=== PATIENT | female | born 1985 | race Caucasian/White ===

== ENCOUNTER → 2016-06-28 | Outpatient (CLI) | payer BC, OTHER ==
[~2016-06-28] MED LIST: DOCU-94 PO; MTR600X PO; OXYC-57 PO; PRENTAB26 PO
== END | disposition home or self-care (01) ==
LOC: C.LABSPEC 10:42
PROVIDERS: ATTEND Obstetrics & Gynecology
DX: O09.03 Supervision of pregnancy with history of infertility, third trimester (principal)

== ENCOUNTER 2016-07-08 11:40 | Outpatient (CLI) | payer BC ==
[~2016-07-08] VITALS: Ht 162.6 cm; Wt 83.5 kg
[2016-07-08] MEDS ORDERED: TERBUTALINE SULFATE 1 MG/ML VIAL SQ ONE (12:30)
[2016-07-08 14:20] VITALS: Ht 162.6 cm; Wt 83.5 kg
--- NOTE | 2016-07-18 06:21 | EDITING REQUIRED CODING QUERY ---
EXTERNAL VERSION CLARIFICATION External version was charged on this account. No documentation in EMR regarding this procedure could be located. Please clarify below regarding this procedure: ( ) External version was performed BRIEF DESCRIPTION: ( ) External version was not performed ( x ) Other, please clarify: ECV attempted but failed. Please see documentation in QS Thank you for your assistance, Telma Stokes - Assistant Community Director
== END 2016-07-08 14:43 | disposition home or self-care (01) ==
LOC: C.LD 11:40 → C.OPB 11:40
PROVIDERS: ATTEND Obstetrics & Gynecology
DX: O32.1XX0 Maternal care for breech presentation, not applicable or unspecified (principal); Z3A.37 37 weeks gestation of pregnancy

== ENCOUNTER 2016-07-21 06:19 | Inpatient (IN) | payer BC ==
[~2016-07-21] VITALS: Ht 165.1 cm; Wt 82.3 kg
[2016-07-21] VITALS (10 sets, daily range): BP systolic 115–130; BP diastolic 67–77; PULSE 64–69; TEMP 36.5–36.8; O2SAT 98–100; Ht 165.1 cm; Wt 82.3 kg
[2016-07-21] MEDS ORDERED: CEFAZOLIN IV 2,000 MG in DEXTROSE 5% 50ML 50 ML IV STA (07:03)
[2016-07-21] MEDS ORDERED: CITRIC ACID/SODIUM CITRATE 15 ML UDC PO STA (07:04)
[2016-07-21 07:53] LABS: BASO % 0.2 %; BASO ABS # 0.02 K/uL (0-0.2); COMPLETE YES; EOS % 0.8 %; HEMATOCRIT 37.1 % (37-47); IG% 0.7 %; LYMPH ABS # 2.52 K/uL (1.2-3.4); MEAN CELL VOLUME 88.5 fL (80-100); MEAN CORPUSCULAR HEMOGLOBIN 30.5 pg (25-34); MEAN CORPUSCULAR HGB CONC 34.5 g/dl (32-36); MEAN PLATELET VOLUME 11.4 fL (7.4-10.4); MONO % 7.8 %; NEUT % 66.5 %; PLATELET COUNT 151 K/uL (130-400); RED BLOOD COUNT 4.19 M/uL (4.2-5.4); WHITE BLOOD COUNT 10.52 K/uL (4.8-10.8)
[2016-07-21] MEDS ORDERED: PRENTAB26 PO (08:09)
[2016-07-21] MEDS ORDERED: DOCU-94 PO (08:09)
[2016-07-21] MEDS ORDERED: MoRPHine SULFATE PF 1 MG/ML 10 ML AMP/VIAL ONE (09:58)
[2016-07-21] MEDS ORDERED: FENTANYL CITRATE INJ 50 MCG/1 ML 2 ML VIAL ONE (09:58)
[2016-07-21] MEDS ORDERED: PHENYLEPHRINE HCL INJ 10 MG/ML VIAL ONE (10:00)
[2016-07-21] MEDS ORDERED: OXYTOCIN INJ 10 UNITS/ML VIAL ONE ×2 (10:06→11:01)
[2016-07-21] MEDS ORDERED: MIDAZOLAM HCL 1 MG/ML 2ML VIAL ONE (11:09)
[2016-07-21] MEDS ORDERED: NALOXONE HCL INJ 1 MG in SODIUM CHLORIDE 0.9% 1000ML 1,000 ML IV PRN ×4 (11:44)
[2016-07-21] MEDS ORDERED: SODIUM CHLORIDE 0.9% 1000ML 1,000 ML IV PRN (11:44)
[2016-07-21] MEDS ORDERED: LACTATED RINGER'S 1000ML 500 ML IV PRN (11:44)
[2016-07-21] MEDS ORDERED: NALOXONE HCL INJ 0.08 MG in SYRINGE 1.8 ML IV PRN (11:44)
[2016-07-21] MEDS ORDERED: NO NARCOTICS OR SEDATIVES SCH (11:45)
[2016-07-21] MEDS ORDERED: MoRPHine SULFATE PF 1 MG/ML 10 ML AMP/VIAL EPI PRN (11:45)
[2016-07-21] MEDS ORDERED: PROMETHAZINE HCL INJ 25 MG in SODIUM CHLORIDE 0.9% 50ML 50 ML IV PRN (11:45)
[2016-07-21] MEDS ORDERED: NALOXONE HCL 0.4 MG/1 ML VIAL/CARP IV PRN (11:45)
[2016-07-21] MEDS ORDERED: ONDANSETRON INJ 2 MG/ML 2 ML VIAL IV PRN (11:45)
[2016-07-21] MEDS ORDERED: DiphenhydrAMINE HCL 50 MG/ML VIAL IV PRN (11:45)
[2016-07-21] MEDS ORDERED: EpHEDrine SULFATE INJ 50 MG/ML AMP IV PRN (11:45)
[2016-07-21] MEDS ORDERED: NALBUPHINE HCL INJ 10 MG/ML AMP IV PRN (11:45)
[2016-07-21] MEDS ORDERED: OXYTOCIN INJ 20 UNITS in LACTATED RINGER'S 1000ML 1,000 ML IV SCH (11:47)
--- NOTE | 2016-07-21 11:54 | [facility] Post Operative Brief Note ---
Immediate Operative Summary Operative Date Jul 21, 2016. Pre-Operative Diagnosis Primary caesarean section for breech presentation, patient arrived with spontaneous rupture of membranes Post-Operative Diagnosis Same as pre-op Procedure(s) Performed Low uterine transverse incision, primary caesarean section, delivery of live male child at [address] Ajay Banks Tracer Lathe Set Up Operator Surgeon(s) Dr. Janice Casillas Estimated Blood Loss 500 ml Findings Delivered a viable infant male, APGARS 7,9. Weight 8lbs 8 oz. Normal uerus, fallopian tubes, and ovaries bilaterally. Specimens A: Placenta: Hold B: Cord blood C: Cord blood for public cord blood banking donation D: Cord blood gases (arterial and venous) Drains Grande to straight drainage, clear urine at end of case Complication(s) None
--- NOTE | 2016-07-21 11:57 | Anesthesiology Progress Note ---
Anesthesia Post Op Note Date & Time Jul 21, 2016 at 11:56 Notes Mental Status: alert / awake / arousable, participated in evaluation Pt Amnestic to Procedure: No Nausea / Vomiting: adequately controlled Pain: adequately controlled Airway Patency, RR, SpO2: stable & adequate BP & HR: stable & adequate Hydration State: stable & adequate Neuraxial Anesthesia: was administered, sensory block is resolving Anesthetic Complications: no major complications apparent
[2016-07-21] MEDS ORDERED: SUPERCREAM 0.870 % 15GM JAR EXT PRN (12:00)
[2016-07-21] MEDS ORDERED: DIPHTHERIA/TETANUS/PERTUSSIS 0.5 ML SYR/VIAL IM. ONE (12:00)
[2016-07-21] MEDS ORDERED: BENZOCAINE 20% AER SPR 82.5 GM CAN EXT PRN (12:00)
[2016-07-21] MEDS ORDERED: SENNA 8.6 MG TAB PO PRN (12:00)
[2016-07-21] MEDS ORDERED: LANOLIN OINT EXT PRN ×2 (12:00)
[2016-07-21] MEDS ORDERED: HYDROCORTISONE ACETATE 25 MG SUPP PR PRN (12:00)
[2016-07-21] MEDS: KETOROLAC TROMETHAMINE 30 MG/ML VIAL IV. PRN ×2 (12:51→18:46)
--- NOTE | 2016-07-21 13:12 | OPERATIVE REPORT ---
DATE OF OPERATION: 07/21/2016 PREOPERATIVE DIAGNOSES: 1. Term intrauterine . 2. Breech presentation. 3. Spontaneous rupture of membranes. POSTOPERATIVE DIAGNOSIS: Same. PROCEDURE PERFORMED: Primary low transverse section. ANESTHESIA: Spinal anesthesia. SURGEON: Juliane Banks DO. SPANISH SPEAKING BABYSITTER: Dr. Casillas. ESTIMATED BLOOD LOSS: 500 mL. FINDINGS: Viable male , Apgars 7 and 9, weight 8 pounds 8 ounces. Normal uterus, fallopian tubes and ovaries bilaterally. SPECIMENS: Placenta, cord blood, cord gases and cord blood for pelvic cord donation banking. DRAINS: Grande catheter to gravity with clear urine at the conclusion of case. COMPLICATIONS: None. DISPOSITION: Stable and good. INDICATIONS FOR PROCEDURE: The patient is a 31-year-old G1, P0 at 39 weeks 2 days who presented with both breach presentation and spontaneous rupture of membranes. Informed consent was obtained and the patient was taken to the operating room for section. DESCRIPTION OF PROCEDURE: The patient was taken to the operating room where spinal anesthesia was introduced. She was placed in the supine position with a leftward tilt. She was prepared and draped in the usual sterile fashion. A timeout was called and confirmed by all participants in the room. She was infused 2 grams of Ancef prior to beginning the procedure. A Pfannenstiel skin incision was made with a scalpel and carried through to the underlying layer of fascia with blunt and sharp dissection. The fascia was nicked at midline and bluntly dissected to extend the incision. The superior aspect of the fascial incision was grasped with Deann clamps x2 elevated off the underlying rectus abdominis muscles both sharply and bluntly. The inferior aspect of the incision was dissected in a similar fashion. The muscles were at midline and the peritoneum was entered bluntly digitally. This incision was extended bluntly. The bladder blade was placed. The bladder flap was created using Metzenbaum scissors and [place] forceps. The bladder blade was replaced. The uterine incision was made with a second scalpel and extended cephalad caudad manually. The infant was delivered from a complete breech presentation. The buttocks was delivered first followed by sweeping of bilateral legs, the left arm was then swept and the right arm was swept and a blue towel was placed around the infant, the head was then atraumatically delivered. The cord was doubly clamped and cut. Baby was handed off to the awaiting pediatrics team. A cord segment was retained for cord gases, cord blood was obtained for public cord donation banking and cord blood was obtained for laboratory testing. The placenta was removed manually, the uterus was exteriorized and the bladder blade was placed. The hysterotomy incision was reapproximated using 0 Vicryl in a running locked stitch. A second layer of the same suture was used to imbricate the hysterotomy incision. The pelvis was irrigated. The posterior uterus was evaluated and normal. The fallopian tubes and ovaries were evaluated, appeared to be normal as well. The uterus was returned to the abdomen and gutters were cleared of all clots and debris. The hysterotomy incision was inspected again and a [id number] stitch was placed in the right apex of the hysterotomy to obtain better hemostasis. Excellent hemostasis was achieved. The fascial incision was reapproximated using 0 Vicryl in a running stitch. The subcutaneous tissue was irrigated and the subcutaneous tissue was reapproximated using 2-0 plain gut suture, the skin was reapproximated using 4-0 Vicryl in a subcuticular fashion. Steri-Strips were applied. The patient was taken back to her labor and delivery room in stable and good condition. She and baby tolerated the procedure well. I attest to the content of the Intraoperative Record and any orders documented therein. Any exceptions are noted below. HAIR
[2016-07-21] MEDS ORDERED: HYDROmorphone INJ 2 MG/ML SYR/VIAL IV PRN (17:15)
[2016-07-21] MEDS: DOCUSATE SODIUM 100 MG CAP PO SCH (20:32)
[2016-07-22] VITALS (12 sets, daily range): BP systolic 118–139; BP diastolic 67–85; PULSE 67–73; TEMP 36.3–37.4; O2SAT 96–99
[2016-07-22] MEDS: KETOROLAC TROMETHAMINE 30 MG/ML VIAL IV. PRN (03:15)
[2016-07-22] MEDS ORDERED: DC INTRASPINAL MORPHINE SCH (05:30)
[2016-07-22] MEDS ORDERED: OXYCODONE/ACETAMINOPHEN 5-325 TAB PO PRN (05:31)
[2016-07-22] MEDS ORDERED: DiphenhydrAMINE HCL 50 MG/ML VIAL IV PRN (05:31)
[2016-07-22] MEDS ORDERED: KETOROLAC TROMETHAMINE 30 MG/ML VIAL IV. PRN (05:31)
[2016-07-22] MEDS ORDERED: ONDANSETRON INJ 2 MG/ML 2 ML VIAL IV PRN (05:31)
[2016-07-22 06:19] LABS: BASO % 0.2 %; BASO ABS # 0.02 K/uL (0-0.2); COMPLETE YES; HEMATOCRIT 30.6 % (37-47); IG% 0.5 %; LYMPH % 16.2 %; LYMPH ABS # 2.13 K/uL (1.2-3.4); MEAN CELL VOLUME 88.2 fL (80-100); MEAN CORPUSCULAR HEMOGLOBIN 30.3 pg (25-34); MEAN CORPUSCULAR HGB CONC 34.3 g/dl (32-36); MEAN PLATELET VOLUME 11.4 fL (7.4-10.4); MONO % 6.5 %; NEUT % 75.6 %; PLATELET COUNT 140 K/uL (130-400); RED BLOOD COUNT 3.47 M/uL (4.2-5.4); WHITE BLOOD COUNT 13.15 K/uL (4.8-10.8)
--- NOTE | 2016-07-22 07:04 | Progress Note ---
Subjective Jul 22, 2016. Subjective conversation w/ patient, conversation w/ family Ambulation: limited ambulation Voiding: angulo catheter in place (Angulo just removed, no urination yet this morning) Passing Gas: Yes Diet Tolerance: Regular Diet Lochia: Small Feeding Type: Breast Feeding Pain: Well controlled with Toradol Review of Systems Constitutional: No chills, No fever Respiratory: No cough, No shortness of breath Cardiac: No chest pain Breast: No breast pain Abdomen: No nausea, No pain, No vomiting Female : No dysuria Objective Vital Signs Date Time Temp Pulse Resp B/P Pulse Ox O2 Delivery O2 Flow Rate FiO2 07/22/16 05:15 18 98 07/22/16 04:23 18 99 07/22/16 04:22 37.4 73 18 118/73 Room Air 07/22/16 03:30 16 98 07/22/16 02:39 16 98 07/22/16 01:58 16 96 07/22/16 01:15 18 98 07/22/16 00:30 36.7 16 118/71 99 Room Air 07/22/16 00:30 99 Room Air 07/22/16 00:00 16 99 07/21/16 23:18 18 98 07/21/16 22:30 20 99 07/21/16 21:30 20 99 07/21/16 20:30 20 99 07/21/16 19:30 99 Room Air 07/21/16 19:30 36.6 69 20 130/77 Room Air 07/21/16 18:30 18 99 07/21/16 17:30 20 98 07/21/16 16:30 36.5 65 18 123/77 100 Room Air 07/21/16 16:30 100 Room Air 07/21/16 16:30 20 100 07/21/16 15:45 36.8 64 20 115/67 100 Room Air 07/21/16 15:35 20 100 Physical Exam General Appearance: WELL-APPEARING, WD/WN, NO APPARENT DISTRESS Respiratory/Chest: lungs clear, normal breath sounds Cardiovascular: regular rate, rhythm, no gallop, no murmur Abdomen: non tender, soft Fundus: Firm, Relation to Umbilicus (At umbilicus) Incision Description: Clean, Dry & Intact Extremities: no calf tenderness Laboratory Results Last 24 Hours Test 07/21/16 07:15 07/22/16 05:45 White Blood Count 10.52 K/uL 13.15 K/uL Red Blood Count 4.19 M/uL 3.47 M/uL Hemoglobin 12.8 g/dL 10.5 g/dL Hematocrit 37.1 % 30.6 % Mean Corpuscular Volume 88.5 fL 88.2 fL Mean Corpuscular Hemoglobin 30.5 pg 30.3 pg Mean Corpuscular Hemoglobin Concent 34.5 g/dl 34.3 g/dl Platelet Count 151 K/uL 140 K/uL Mean Platelet Volume 11.4 fL 11.4 fL Neutrophils (%) (Auto) 66.5 % 75.6 % Lymphocytes (%) (Auto) 24.0 % 16.2 % Monocytes (%) (Auto) 7.8 % 6.5 % Eosinophils (%) (Auto) 0.8 % 1.0 % Basophils (%) (Auto) 0.2 % 0.2 % Neutrophils # (Auto) 7.01 K/uL 9.94 K/uL Lymphocytes # (Auto) 2.52 K/uL 2.13 K/uL Monocytes # (Auto) 0.82 K/uL 0.86 K/uL Eosinophils # (Auto) 0.08 K/uL 0.13 K/uL Basophils # (Auto) 0.02 K/uL 0.02 K/uL RDW Standard Deviation 43.2 fL 42.9 fL RDW Coefficient of Variation 13.3 % 13.4 % Immature Granulocyte % (Auto) 0.7 % 0.5 % Immature Granulocyte # (Auto) 0.07 K/uL 0.07 K/uL Medications Current Inpatient Medications Medications (Trade) Dose Ordered Sig/Tiffanie Route Start Time Stop Time Status Last Admin Dose Admin Oxytocin/Lactated Ringer's (Pitocin Inj/Lr 1000ml) 1,002 ml @ 125 mls/hr Q8H1M IV 07/21/16 11:47 08/20/16 11:46 07/21/16 14:00 125 MLS/HR Ketorolac Tromethamine (Toradol Inj) 30 mg Q6H PRN IV. 07/22/16 05:31 07/26/16 05:30 Oxycodone/ Acetaminophen (Percocet 5-325mg Tab) 1 tab Q4H PRN PO 07/22/16 05:31 08/05/16 05:30 Oxycodone/ Acetaminophen (Percocet 5-325mg Tab) 2 tab Q4H PRN PO 07/22/16 05:31 08/05/16 05:30 Ibuprofen (Motrin Tab) 600 mg Q4H PRN PO 07/21/16 12:00 08/20/16 11:59 Ondansetron HCl (Zofran Inj) 4 mg Q4H PRN IV 07/22/16 05:31 08/21/16 05:30 Prenat Multivit/ [place]/Iron/Folic Ac ( Vitamin Tab) 1 tab DAILY PO 07/22/16 08:00 08/21/16 07:59 Bisacodyl (Dulcolax Tab) 5 mg HS ONCE PO 07/22/16 22:00 07/22/16 22:01 Bisacodyl (Dulcolax Supp) 10 mg TODAY@0700 PRN HI 07/23/16 07:00 07/23/16 23:59 Docusate Sodium (coLACE CAP) 100 mg BID PO 07/21/16 20:00 08/20/16 19:59 07/21/16 20:32 100 MG Cocaine HCl (Supercream 0.870% Cr) BID PRN EXT 07/21/16 12:00 08/04/16 11:59 Lanolin (Lanolin Oint) PRN PRN EXT 07/21/16 12:00 08/20/16 11:59 Hydrocortisone Acetate (Anusol Hc Supp) 25 mg BID PRN HI 07/21/16 12:00 08/20/16 11:59 Benzocaine (Dermoplast Aero Spr) 1 appln PRN PRN EXT 07/21/16 12:00 08/20/16 11:59 Diphenhydramine HCl (Benadryl Cap) 25 mg QID PRN PO 07/22/16 05:31 08/21/16 05:30 Diphenhydramine HCl (Benadryl Inj) 25 mg QID PRN IV 07/22/16 05:31 08/21/16 05:30 Senna (Senokot Tab) 17.2 mg HS PRN PO 07/21/16 12:00 08/20/16 11:59 Hydromorphone HCl (Dilaudid Inj) 0.25 mg Q5M PRN IV 07/21/16 17:15 08/04/16 17:14 Assessment and Plan Post-Op Day#: 1 Continue Routine Care: - Vital Signs reviewed and WNL (temp max 37.4) - Blood Type: O+, GBS Negative, Rubella Immune - Patient doing well clinically - Encourage Ambulation today - Tolerating PO Diet - Pain well controlled - Angulo removed this morning, observe for urination today Resident Physician Supervision Note: I was present with Dr. Casillas during the history and exam. I discussed the case with the resident and agree with the findings and plan as documented in the note. Any exceptions or clarifications are listed here: POD#1, doing well. Routine postop care. Documented By: Juliane Banks
[2016-07-22] MEDS: IBUPROFEN 600 MG TAB PO PRN ×5 (07:27→23:42)
[2016-07-22] MEDS: OXYCODONE/ACETAMINOPHEN 5-325 TAB PO PRN ×5 (07:28→23:42)
[2016-07-22] MEDS: DOCUSATE SODIUM 100 MG CAP PO SCH ×2 (07:33→19:35)
[2016-07-22] MEDS: PRENATAL VITAMIN TAB PO SCH (07:33)
[2016-07-22] MEDS ORDERED: BISACODYL 5 MG TABEC PO ONE (22:00)
[2016-07-23 00:30] VITALS: BP 115/62; PULSE 76; TEMP 36.6; O2SAT 98
[2016-07-23] MEDS: OXYCODONE/ACETAMINOPHEN 5-325 TAB PO PRN ×4 (04:34→18:27)
[2016-07-23] MEDS: IBUPROFEN 600 MG TAB PO PRN ×5 (04:34→23:43)
[2016-07-23 07:00] LABS: HEMATOCRIT 29.4 % (37-47)
[2016-07-23] MEDS ORDERED: BISACODYL 10 MG SUPP PR PRN (07:00)
--- NOTE | 2016-07-23 07:05 | Progress Note ---
Subjective Jul 23, 2016. Subjective conversation w/ patient, physical exam Ambulation: ambulating normally Voiding: no voiding problems Passing Gas: Yes Diet Tolerance: Regular Diet Lochia: Small Feeding Type: Breast Feeding Pain: No pain reported this morning Review of Systems Constitutional: No chills, No fever Respiratory: No cough, No shortness of breath Cardiac: No chest pain Breast: No breast pain Abdomen: No nausea, No pain, No vomiting Female : No dysuria Objective Vital Signs Date Time Temp Pulse Resp B/P Pulse Ox O2 Delivery O2 Flow Rate FiO2 07/23/16 00:30 36.6 76 16 115/62 98 Room Air 07/23/16 00:30 98 Room Air 07/22/16 15:25 36.3 69 18 139/67 97 Room Air 07/22/16 15:25 97 Room Air 07/22/16 08:00 36.6 67 18 128/85 99 Room Air 07/22/16 07:40 Room Air Physical Exam General Appearance: WELL-APPEARING, WD/WN, NO APPARENT DISTRESS Respiratory/Chest: lungs clear, normal breath sounds Cardiovascular: regular rate, rhythm, no gallop, no murmur Abdomen: non tender, soft Fundus: Firm, Relation to Umbilicus (1cm below umbilicus) Incision Description: Clean, Dry & Intact Extremities: no calf tenderness Laboratory Results Last 24 Hours Test 07/23/16 06:20 Hemoglobin 9.9 g/dL Hematocrit 29.4 % Medications Current Inpatient Medications Medications (Trade) Dose Ordered Sig/Tiffanie Route Start Time Stop Time Status Last Admin Dose Admin Oxytocin/Lactated Ringer's (Pitocin Inj/Lr 1000ml) 1,002 ml @ 125 mls/hr Q8H1M IV 07/21/16 11:47 08/20/16 11:46 07/21/16 14:00 125 MLS/HR Ketorolac Tromethamine (Toradol Inj) 30 mg Q6H PRN IV. 07/22/16 05:31 07/26/16 05:30 Oxycodone/ Acetaminophen (Percocet 5-325mg Tab) 1 tab Q4H PRN PO 07/22/16 05:31 08/05/16 05:30 07/23/16 04:34 1 TAB Oxycodone/ Acetaminophen (Percocet 5-325mg Tab) 2 tab Q4H PRN PO 07/22/16 05:31 08/05/16 05:30 Ibuprofen (Motrin Tab) 600 mg Q4H PRN PO 07/21/16 12:00 08/20/16 11:59 07/23/16 04:34 600 MG Ondansetron HCl (Zofran Inj) 4 mg Q4H PRN IV 07/22/16 05:31 08/21/16 05:30 Prenat Multivit/ [place]/Iron/Folic Ac ( Vitamin Tab) 1 tab DAILY PO 07/22/16 08:00 08/21/16 07:59 07/22/16 07:33 1 TAB Bisacodyl (Dulcolax Supp) 10 mg TODAY@0700 PRN NM 07/23/16 07:00 07/23/16 23:59 Docusate Sodium (coLACE CAP) 100 mg BID PO 07/21/16 20:00 08/20/16 19:59 07/22/16 19:35 100 MG Cocaine HCl (Supercream 0.870% Cr) BID PRN EXT 07/21/16 12:00 08/04/16 11:59 Lanolin (Lanolin Oint) PRN PRN EXT 07/21/16 12:00 08/20/16 11:59 Hydrocortisone Acetate (Anusol Hc Supp) 25 mg BID PRN NM 07/21/16 12:00 08/20/16 11:59 Benzocaine (Dermoplast Aero Spr) 1 appln PRN PRN EXT 07/21/16 12:00 08/20/16 11:59 Diphenhydramine HCl (Benadryl Cap) 25 mg QID PRN PO 07/22/16 05:31 08/21/16 05:30 Diphenhydramine HCl (Benadryl Inj) 25 mg QID PRN IV 07/22/16 05:31 08/21/16 05:30 Senna (Senokot Tab) 17.2 mg HS PRN PO 07/21/16 12:00 08/20/16 11:59 Hydromorphone HCl (Dilaudid Inj) 0.25 mg Q5M PRN IV 07/21/16 17:15 08/04/16 17:14 Assessment and Plan Post-Op Day#: 2 Continue Routine Care: - Vital Signs reviewed and WNL (temp max 36.6) - Blood Type: O+, GBS Negative, Rubella Immune - Patient doing well clinically - Encourage Ambulation today - Tolerating PO Diet - Pain well controlled Resident Physician Supervision Note: I interviewed and examined the patient. Discussed with Dr. Casillas and agree with findings and plan as documented in the note. Any exceptions or clarifications are listed here: [None] Documented By: Christopher Phelps
[2016-07-23 08:20] VITALS: BP 101/70; PULSE 70; TEMP 36.8; O2SAT 97
[2016-07-23] MEDS: PRENATAL VITAMIN TAB PO SCH (08:53)
[2016-07-23] MEDS: DOCUSATE SODIUM 100 MG CAP PO SCH ×2 (08:54→20:53)
[2016-07-23 15:55] VITALS: BP 131/77; PULSE 75; TEMP 36.9; O2SAT 98
[2016-07-23 23:55] VITALS: BP 122/79; PULSE 77; TEMP 36.7
[2016-07-24] MEDS: IBUPROFEN 600 MG TAB PO PRN (07:41)
[2016-07-24] MEDS: PRENATAL VITAMIN TAB PO SCH (07:41)
[2016-07-24] MEDS: DOCUSATE SODIUM 100 MG CAP PO SCH (07:43)
--- NOTE | 2016-07-24 09:13 | Progress Note ---
Subjective Jul 24, 2016. Subjective conversation w/ patient, physical exam, chart review, lab review Ambulation: ambulating normally Voiding: no voiding problems Passing Gas: Yes Diet Tolerance: Regular Diet Lochia: Small Feeding Type: Breast Feeding Objective Vital Signs Date Time Temp Pulse Resp B/P Pulse Ox O2 Delivery O2 Flow Rate FiO2 07/23/16 23:55 36.7 77 18 122/79 Room Air 07/23/16 23:55 Room Air 07/23/16 15:55 98 Room Air 07/23/16 15:55 36.9 75 18 131/77 98 Room Air Physical Exam General Appearance: WELL-APPEARING Respiratory/Chest: lungs clear Cardiovascular: regular rate, rhythm Abdomen: non tender Fundus: Firm Incision Description: Clean, Dry & Intact Extremities: no calf tenderness Assessment and Plan Post-Op Day#: 3 Continue Routine Care: home
[2016-07-24] MEDS ORDERED: OXYC-57 PO (09:14)
[2016-07-24] MEDS ORDERED: MTR600X PO (09:14)
--- NOTE | 2016-07-24 09:15 | Discharge Instructions ---
Discharge Instructions Admission Reason for Admission: Active Labor Discharge Discharge Diagnosis / Problem: C/S Discharge Goals Goal(s): Routine recovery after Activity Recommendations Activity Limitations: per Instructions/Follow-up section . Instructions / Follow-Up Instructions / Follow-Up ACTIVITY RECOMMENDATIONS: * Gradual return to full activity over the next 2-3 weeks. * No lifting - nothing heavier than baby over the next 2-3 weeks. * Do not engage in vigorous exercise, sexual activity or sports until cleared by your physician. * Do not drive or operate any motorized equipment until cleared by your physician. * You may shower/bathe daily. MEDICATIONS: For discomfort or pain, you may use Acetaminophen (Tylenol), Ibuprofen (Advil), or Naproxen (Aleve) following the package directions. For constipation you may use Colace following the package directions. BREAST CARE: If you are not breast feeding: * Wear a supportive bra 24 hours a day for one to two weeks. * Avoid stimulating your breasts and nipples as much as possible during the first few weeks after delivery. * When taking a shower, have the warm water hit your back, not breasts. * When your breasts feel full, apply ice packs. Usually three to four times a day helps ease the discomfort. * Take a mild pain medication (Tylenol / Motrin) when you are uncomfortable. If breast feeding: * Use breast milk to lubricate nipples. Lansinoh cream may be used for sore nipples. You do not need to remove cream prior to breast feeding. If using a different brand of cream, check the label for directions regarding removal of cream prior to nursing. * Wear a supportive bra. * If having problems with breasts or breast feeding, call a creative consultant or your health care provider. SPECIAL CARE INSTRUCTIONS: When you are discharged from the hospital, it is important for you to follow the instructions listed below: * During the first week at home, you should be able to care for yourself and your baby. In addition, the usual light household activities are encouraged. * Limit your activities to the way you feel. Do not try to clean the house or move furniture. Be sensible. * If you actively engage in sports and have done so up until the time of your delivery, you may resume these activities as soon as you feel able. This may take up to one month or even longer. Use good judgment. * Continue to take your vitamins for at least six weeks after the of your baby. * Your diet need not be limited unless you were on a special diet before your delivery. Breast-feeding mothers need around 2500 calories per day and at least 64-80 ounces of fluid per day (8 to 10 glasses). * You should eat foods from the four major food groups. Crash diets or fad diets are to be avoided. Eating lean meats, fresh fruits and vegetables, low-fat dairy products, high fiber foods and a regular exercise program, will help you get back to your pre- weight without putting your health at risk. * Constipation is sometimes a problem after delivery. Take a mild laxative as needed. If breast feeding, Milk of Magnesia is acceptable to use. You may use a suppository or Fleets enema. * A daily shower or tub bath is suggested. Wash incision daily with warm soapy water and pat dry. It doesn't need to be covered unless drainage is present. * A bloody vaginal discharge will usually continue until around four weeks . A small amount of bleeding may continue for as long as six weeks. Vaginal discharge changes from the bright red bleeding after delivery to pink then brownish and finally yellowish-pink before becoming white and disappearing. * Bleeding may increase with activity. Your first period may come in 4-8 weeks. If you are breast feeding, your period may be delayed even longer. * [place] (sex) can begin whenever both you and your partner feel comfortable and do not have any form of genital infection. It is recommended that you wait at least six weeks for internal and external healing to occur. If you have questions, please talk to your health care practitioner. A condom should be used to prevent infection and . * Foreplay, gentle intercourse and lubrication is very important the first several times to prevent pain. A water-based lubricant such as K-Y jelly or Astroglide may be used. * If you have RH negative blood and your baby is RH positive, you will receive RHOGAM by injection prior to discharge. The nurse will give you a card to keep with you that has the date and place that you received RHOGAM after delivery. * During your care, you had a Rubella screen done to check for the presence of rubella antibodies in your blood. If your test was negative, you will receive a Rubella vaccine prior to discharge. This vaccine may cause a fever, soreness at the injection site and flu-like symptoms. If these symptoms persist, notify your health care practitioner. is not advised for one month after a Rubella vaccine. * Verbalizes understanding of car seat law as reviewed with patient nursing. * Car Seat hand-out given and reviewed with patient by nursing. * Shaken baby information reviewed with patient by nursing. Call you doctor if: * Heavy bleeding (saturating several pads an hour) or passing clots the size of your fist. * A fever >101 degrees F (38.3 degrees C) on two occasions four hours apart and /or chills. * Unusual pain in the pelvic or vaginal areas. * Call the doctor for any increased redness, drainage or swelling around the incision and any pain unrelieved by prescribed pain medication. * "Baby Blues" lasting longer than two weeks. If you have any questions or concerns, call your health care practitioner at . FOLLOW UP VISIT: * Please call the office at to schedule a 6 week examination. It is important you keep this appointment. It is important for you to make arrangements for either yearly or twice yearly check-ups thereafter. Current Hospital Diet Patient's current hospital diet: Regular OB Diet Discharge Diet Recommended Diet: Regular Diet Procedures Procedures Performed: Low uterine transverse incision, primary caesarean section, delivery of live male child at 1051 Pending Studies Studies pending at discharge: no Medical Emergencies . Who to Call and When: Medical Emergencies: If at any time you feel your situation is an emergency, please call [phone] immediately. . Non-Emergent Contact Non-Emergency issues call your: Primary Care Provider . . "Provider Documentation" section prepared by Desean Padilla. VTE Core Measure Inpt VTE Proph given/why not?: Madhuri Mcnair, SCD's
[2016-07-24 09:40] VITALS: BP 137/87; PULSE 73; TEMP 36.5
[2016-07-24 12:50] VITALS: BP_DIAS 87; PULSE 73; TEMP 36.5
--- NOTE | 2016-07-30 03:05 | DISCHARGE SUMMARY ---
ADMISSION DIAGNOSES: 1. Term intrauterine . 2. Breech presentation. 3. Spontaneous rupture of membranes. DISCHARGE DIAGNOSES: Same. PROCEDURE: Primary low transverse section. COURSE OF HOSPITAL STAY: The patient presented with the above noted diagnoses, primary low transverse section was performed. Her postoperative course was unremarkable and she recovered well and was discharged to home on postoperative day 3. CONDITION ON DISCHARGE: Stable and good. ACTIVITY: No heavy lifting, pelvic rest. FOLLOWUP: Follow up in 6 weeks in the office. DIET: Regular. MEDICATIONS: Please see discharge medication list.
== END 2016-07-24 14:33 | disposition home or self-care (01) | DRG 766 ==
LOC: C.OPB 06:19 → C.LD 06:38 → C.OBG 15:44
PROVIDERS: ADMIT Obstetrics & Gynecology; ATTEND Obstetrics & Gynecology
PROC: 10D00Z1 Extraction of Products of Conception, Low, Open Approach (ICD-10-PCS; principal; 2016-07-21 10:12)
DX: O42.92 Full-term premature rupture of membranes, unspecified as to length of time between rupture and onset of labor (principal); Z37.0 Single live birth; O32.1XX0 Maternal care for breech presentation, not applicable or unspecified; O99.214 Obesity complicating childbirth; E66.9 Obesity, unspecified; Z68.30 Body mass index [BMI] 30.0-30.9, adult; O99.02 Anemia complicating childbirth; D64.9 Anemia, unspecified; Z3A.39 39 weeks gestation of pregnancy

== ENCOUNTER → 2016-07-27 | Outpatient (CLI) | payer BC ==
[2016-07-27 15:40] LABS: URINE APPEARANCE CLEAR (CLEAR); URINE BILIRUBIN NEG (NEG); URINE COLOR YELLOW; URINE NITRITE NEG (NEG); URINE SPECIFIC GRAVITY 1.004 (1.000-1.030); UROBILINOGEN NEG (NEG)
[2016-07-27 15:49] LABS: MANUAL MICROSCOPIC REQUIRED? NO; REVIEW REQ? NO
== END | disposition home or self-care (01) ==
LOC: C.LAB1850 14:41
PROVIDERS: ATTEND Obstetrics & Gynecology
DX: R30.9 Painful micturition, unspecified (principal)

== ENCOUNTER → 2017-01-06 | Outpatient (CLI) | payer BC | END | disposition home or self-care (01) | LOC: C.PAPS 14:18 | PROVIDERS: ATTEND Obstetrics & Gynecology | DX: Z01.419 Encounter for gynecological examination (general) (routine) without abnormal findings (principal) ==